=== PATIENT | female | born 1990 | race Two or more races ===

== ENCOUNTER 2016-05-04 08:16 | Emergency (ER) | payer OTHER ==
[2016-05-04] MEDS ORDERED: LACTATED RINGERS 1,000 ML ONE (09:00)
[2016-05-04] MEDS ORDERED: KETOROLAC TROMETHAMINE 15 MG/ML VIAL ONE (09:00)
[2016-05-04] MEDS ORDERED: ONDANSETRON 4 MG/2ML 2 ML VIAL ONE (09:00)
[2016-05-04 09:12] LABS: ABSOLUTE NEUTROPHIL COUNT 6.3 K/mm3 (1.8-7.7); BASO % 0.3 % (0.2-1.0); EOS # 0.1 (0.0-0.5); EOS % 0.9 % (0.9-2.9); HEMATOCRIT 40.1 % (37.0-47.0); HEMOGLOBIN 13.3 gm/l (12.0-16.0); IMM NEUT% 0.2 % (0-1); LYMPH # 2.3 (1.0-4.8); LYMPH % 24.9 % (15-45); MEAN CORPUSCULAR HEMOGLOBIN 28.2 pg (27.0-31.0); MEAN CORPUSCULAR HGB CONC 33.2 g/dl (33.0-37.0); MEAN PLATELET VOLUME 10.9 fl (7.4-10.4); MONO # 0.4 (0.0-0.8); MONO % 4.4 % (4-12); NEUT % 69.3 % (43-75); PLATELET COUNT 307 K/mm3 (130-400); RED CELL DISTRIBUTION WIDTH 12.5 % (11.5-14.5)
[2016-05-04 09:30] LABS: CALCIUM 9.3 mg/dL (8.6-10.3)
--- NOTE | 2016-05-04 11:21 | US ---
Exam: Complete pelvic ultrasound COMPARISON: None INDICATION: Right-sided pelvic pain/right lower quadrant pain. FINDINGS: Transabdominal pelvic ultrasound was obtained. Transvaginal ultrasound was not performed as patient is not sexually active. Uterus measures 8.2 x 3.7 x 4.7 cm and is homogeneous in echotexture. No myometrial masses are identified. Endometrium within normal limits measuring roughly 8 mm. Right ovary measures 4.2 x 2.2 x 3.3 cm and contains a 3.1 x 1.8 x 1.7 cm cyst. Blood flow is present within the right ovary. Left ovary was not visualized. There is no significant free fluid in cul-de-sac. Focused ultrasound evaluation the region of pain demonstrated no focal sonographic abnormality. IMPRESSION: 1. 3.1 cm right ovarian cyst. There is no evidence of right ovarian torsion. 2. Uterus within normal limits. 3. Left ovary not visualized. Message left for Dr. Mejia with April in the ED at 11:15 hours 05/04/2016.
== END 2016-05-04 12:24 | disposition home or self-care (01) ==
LOC: ED 08:16
DX: N83.201 Unspecified ovarian cyst, right side (principal); R11.2 Nausea with vomiting, unspecified; I10 Essential (primary) hypertension